=== PATIENT | male | born 1945 | race Caucasian/White ===

== ENCOUNTER 2016-03-10 06:40 | Emergency (ER) | payer OTHER, MEDICAID ==
[~2016-03-10] VITALS: Ht 167.6 cm; Wt 84.8 kg
[2016-03-10 06:40] VITALS: BP 143/77; PULSE 88; RESP 18; TEMP 98.4; O2SAT 100
[2016-03-10] MEDS ORDERED: OMEP40CA33 (07:26)
[2016-03-10] MEDS ORDERED: INSU10VI5 (07:26)
[2016-03-10] MEDS ORDERED: ATOR20TA64 (07:26)
[2016-03-10] MEDS ORDERED: NAPR-238 (07:26)
[2016-03-10] MEDS ORDERED: LOSA50TA20 (07:26)
[2016-03-10] MEDS ORDERED: ASPI-524 (07:26)
[2016-03-10] MEDS ORDERED: HYDR-2470 (07:26)
[2016-03-10] MEDS ORDERED: FURO-149 (07:26)
[2016-03-10] MEDS ORDERED: CARV25TA55 (07:26)
[2016-03-10] MEDS ORDERED: ACETAMINOPHEN 500 MG TABLET PO ONE (08:15)
[2016-03-10] MEDS ORDERED: predniSONE 1 MG TABLET PO ONE (10:00)
[2016-03-10 10:09] VITALS: O2SAT 97
[2016-03-10 10:22] VITALS: BP 124/77; PULSE 77; RESP 16
== END 2016-03-10 10:22 | disposition home or self-care (01) ==
LOC: SED 06:40
DX: M10.9 Gout, unspecified (principal); E11.9 Type 2 diabetes mellitus without complications; I10 Essential (primary) hypertension; Z79.4 Long term (current) use of insulin
CPT/HCPCS: 36415; 73564; 84550; 85651; 99285; J7512

== ENCOUNTER 2016-04-18 09:50 | Inpatient (IN) | payer OTHER, MEDICAID ==
[~2016-04-18] VITALS: Ht 167.6 cm; Wt 83.9 kg
[~2016-04-18 09:50] MED LIST: ASPI-524; ATOR20TA64; CARV25TA55; FURO-149; HYDR-2470; INSU10VI5; LOSA50TA20; NAPR-238; OMEP40CA33
[2016-04-18 09:55] VITALS: BP 86/54; PULSE 82; RESP 16; TEMP 97; O2SAT 98
--- NOTE | 2016-04-18 10:05 | NUR ---
Placed in room 1. Placed on radiation monitor, blood pressure machine and pulse oximeter. To gown for exam. Side rails up. Report given to Wilver BONE.
--- NOTE | 2016-04-18 10:06 | NUR ---
ER Dr. Schaefer at bedside examining patient.
--- NOTE | 2016-04-18 10:10 | NUR ---
BIB from home c/o back pain, headache, dizziness, blurred vision last night with low BP last night. Denies chest pain, denies shortness of breath. Denies headache, dizziness, or blurred vision today. Denies pain at this time.
[2016-04-18] MEDS ORDERED: NACL 0.9% 1,000 ML IV ONE (10:15)
[2016-04-18 10:40] LABS: BASOPHILS % (AUTO) 0.1 % (0.0-2.0); EOSINOPHILS # (AUTO) 0.2 K/uL (0.0-0.4); EOSINOPHILS % (AUTO) 1.1 % (0.0-4.0); HEMATOCRIT 36.3 % (36-54); HEMOGLOBIN 11.9 g/dL (14.0-18.0); LYMPHOCYTES # (AUTO) 1.1 K/uL (1.0-5.5); LYMPHOCYTES % (AUTO) 5.7 % (20.5-51.5); MEAN CORPUSCULAR HEMOGLOBIN 30 pg (27-31); MEAN CORPUSCULAR HGB CONC 33 % (32-36); MEAN CORPUSCULAR VOLUME 90 fL (79.0-98.0); MONOCYTES # (AUTO) 1.4 K/uL (0.0-1.0); MONOCYTES % (AUTO) 7.2 % (1.7-9.3); NEUTROPHILS # (AUTO) 16.4 K/uL (1.8-7.7); NEUTROPHILS % (AUTO) 85.9 % (40.0-70.0); PLATELET COUNT (AUTO) 188 K/uL (130-430); RED BLOOD CELL COUNT(AUTO) 4.01 MIL/uL (4.2-6.2); RED CELL DISTRIBUTION WIDTH 15.8 % (9.0-15.0); WHITE BLOOD COUNT (AUTO) 19.1 K/uL (4.8-10.8)
[2016-04-18 10:43] LABS: CALCIUM 8.6 mg/dL (8.4-11.0); CREATININE 4.06 mg/dL (0.55-1.30); POTASSIUM 3.9 mmol/L (3.5-5.1)
[2016-04-18 10:47] LABS: INR 1.1 (0.80-1.20); PROTHROMBIN TIME 11.5 SECS (9.5-12.5)
[2016-04-18 10:48] LABS: ALBUMIN 2.6 g/dL (3.4-4.8); TOTAL BILIRUBIN 0.7 mg/dL (0.0-1.0); TOTAL PROTEIN, SERUM 6.4 g/dL (6.4-8.3)
[2016-04-18] MEDS ORDERED: PROCHLORPERAZINE EDISYLATE 10 MG/2 ML VIAL IVP ONE (11:15)
[2016-04-18] MEDS ORDERED: cefTRIAXone 1 GM IVPB PREMIX 50 ML IV ONE (11:15)
[2016-04-18] MEDS ORDERED: KETOROLAC TROMETHAMINE 30 MG VIAL IVP ONE (12:15)
--- NOTE | 2016-04-18 12:20 | NUR ---
Patient resting quietly. No acute distress noted. Vital signs within normal range. Denies pain.
--- NOTE | 2016-04-18 12:25 | NUR ---
Dr. Schaefer at bedside speaking with pt regarding ED results.
[2016-04-18 12:29] LABS: BILIRUBIN,URINE NEGATIVE (NEGATIVE); BLOOD, URINE NEGATIVE (NEGATIVE); CLARITY/URINE CLEAR (CLEAR); COLOR,URINE YELLOW (YELLOW); GLUCOSE,URINE NEGATIVE (NEGATIVE); KETONES,URINE NEGATIVE (NEGATIVE); LEUKOCYTE ESTERASE ,URINE NEGATIVE (NEGATIVE); NITRITE, URINE NEGATIVE (NEGATIVE); PH,URINE 5.5 (5.0-8.0); PROTEIN URINE NEGATIVE (NEGATIVE); UROBILINOGEN,URINE 0.2 (0.2-1.0)
[2016-04-18] MEDS ORDERED: ALLO100T PO (12:29)
[2016-04-18] MEDS ORDERED: LEVO50TA77 PO (12:29)
[2016-04-18] MEDS ORDERED: PRED20TA PO (12:29)
[2016-04-18] MEDS ORDERED: IBUP-1969 PO (12:29)
--- NOTE | 2016-04-18 12:46 | NUR ---
Care endorsed to SMITHA Westbrook
--- NOTE | 2016-04-18 14:13 | NUR ---
Patient will be admitted to care of [facility]. Admitted to tele unit. Will go to room . Belongings list completed. Summary report printed. Report given to .
--- NOTE | 2016-04-18 14:30 | NUR ---
ADMISSION NOTE Received patient from ER via jeremy, received report from SHENG BONE. Patient admitted with diagnosis of ACUTE RENAL FAILURE. Patient oriented to hospital routine, call light, toileting and safety-patient verbalized understanding.
[2016-04-18 14:33] VITALS: BP 131/85; PULSE 74; RESP 16; TEMP 97.5; O2SAT 97
[2016-04-18] MEDS: NACL 0.9% 1,000 ML IV SCH (14:52)
[2016-04-18 15:11] LABS: C-REACTIVE PROTEIN QUANT 4.8 mg/dL (0-0.5); URIC ACID 10.3 mg/dL (2.4-7.0)
[2016-04-18] MEDS ORDERED: ACETAMINOPHEN 325 MG TABLET PO PRN (16:00)
--- NOTE | 2016-04-18 16:00 | NUR ---
RN ROUNDS Patient is resting in bed, no complaints of pain or discomfort, no signs of distress, instructed patient to use call lewis if assistance is needed, patient verbalized understanding, bed left in lowest position, bed alarm on, call lewis in patient's hand, side rails up, fall precautions in place.
[2016-04-18] MEDS ORDERED: HYDROcodone/ACETAMIN 5-325 MG TAB (NORCO/ VICODIN) PO PRN (16:15)
[2016-04-18] MEDS ORDERED: METOCLOPRAMIDE HCL 10 MG TABLET PO PRN (16:15)
[2016-04-18] MEDS ORDERED: PANTOPRAZOLE SODIUM 40 MG TAB PO ONE (16:15)
--- NOTE | 2016-04-18 16:43 | NUR ---
CALLED NEPHROLOGY CONSULT TO DR CHRISTIANSON, DR DOE PROBE OPERATOR, RE: ACUTE RENAL FAILURE. SPOKE TO KENNA
--- NOTE | 2016-04-18 17:10 | NUR ---
RN ROUND Patient is resting in bed, no complaints of pain or discomfort, bed in lowest position, bed alarm on, two side rails up, call lewis within patient's reach, instructed patient to call if assistance is needed, patient verbalized understanding, will continue to monitor
[2016-04-18] MEDS: INSULIN ASPART 100 UNITS/ML, 10 ML VIAL (NovoLOG) SUBCUT PRN ×2 (17:41→21:37)
--- NOTE | 2016-04-18 18:35 | NUR ---
Closing note Patient is resting in bed, no complaints of pain or discomfort, no signs of distress, all needs met, will endorse to shiftman nurse that patient needs US of renal to be done, bed in lowest position, bed alarm on, side rails up, call lewis in patient's hand, fall precautions in place.
--- NOTE | 2016-04-18 19:50 | NUR ---
ROUNDS PATIENT IN BED, WATCHING TV, NOT IN DISTRESS, VITALS STABLE. DENIES ANY PAIN AND DISCOMFORT AT THIS TIME. ASSESSMENT DONE AND DOCUMENTED. SEE FLOWSHEET. NEEDS ATTENDED TO. REPOSITIONED AND MADE COMFORTABLE. SAFETY AND FALL PRECAUTION MEASURES IN PLACED. BED IN LOW AND LOCKED POSITION. CALL LIGHT PLACED WITH PATIENT.
[2016-04-18] MEDS ORDERED: ZOLPIDEM TARTRATE 5 MG TABLET PO PRN (21:00)
--- NOTE | 2016-04-18 21:00 | NUR ---
MEDICATION DUE MEDICATIONS GIVEN SCHEDULED, TOLERATED WELL. WILL CONTINUE TO MONITOR.
[2016-04-18 22:47] VITALS: BP 146/78; PULSE 80; RESP 20; TEMP 97; O2SAT 98
[2016-04-19] VITALS (7 sets, daily range): BP systolic 146–175; BP diastolic 78–87; PULSE 81–84; RESP 16–21; TEMP 97–98.8; O2SAT 96–100; Ht 167.6 cm; Wt 83.9 kg
--- NOTE | 2016-04-19 | NUR ---
PATIENT RESTING: Patient resting quietly. No acute distress noted. Vital signs within normal range.
--- NOTE | 2016-04-19 02:00 | NUR ---
ROUNDS PATIENT ASLEEP, NO SOB NOTED, WILL CONTINUE TO MONITOR.
--- NOTE | 2016-04-19 04:00 | NUR ---
PATIENT RESTING: Patient resting quietly. No acute distress noted. Vital signs within normal range.
[2016-04-19] MEDS: NACL 0.9% 1,000 ML IV SCH (04:32)
--- NOTE | 2016-04-19 06:50 | NUR ---
CLOSING NOTES PATIENT STABLE, ACCU CHECK DONE WITH BLOOD SUGAR OF 150 MG/DL, NO INSULIN COVERAGE PER SLIDING SCALE. ALL NEEDS ATTENDED TO. CALL LIGHT PLACED WITH PATIENT.
[2016-04-19] MEDS ORDERED: LEVOTHYROXINE SODIUM 0.05 MG TABLET PO SCH (07:00)
[2016-04-19 07:01] LABS: BASOPHILS % (AUTO) 0.1 % (0.0-2.0); EOSINOPHILS # (AUTO) 0.2 K/uL (0.0-0.4); EOSINOPHILS % (AUTO) 1.6 % (0.0-4.0); HEMATOCRIT 32.5 % (36-54); HEMOGLOBIN 10.9 g/dL (14.0-18.0); LYMPHOCYTES # (AUTO) 1.4 K/uL (1.0-5.5); LYMPHOCYTES % (AUTO) 11.2 % (20.5-51.5); MEAN CORPUSCULAR HEMOGLOBIN 30 pg (27-31); MEAN CORPUSCULAR HGB CONC 33 % (32-36); MEAN CORPUSCULAR VOLUME 90 fL (79.0-98.0); MONOCYTES # (AUTO) 1.5 K/uL (0.0-1.0); MONOCYTES % (AUTO) 11.9 % (1.7-9.3); NEUTROPHILS # (AUTO) 9.5 K/uL (1.8-7.7); NEUTROPHILS % (AUTO) 75.2 % (40.0-70.0); PLATELET COUNT (AUTO) 163 K/uL (130-430); RED CELL DISTRIBUTION WIDTH 15.9 % (9.0-15.0); WHITE BLOOD COUNT (AUTO) 12.6 K/uL (4.8-10.8)
[2016-04-19 07:29] LABS: ALBUMIN 2.4 g/dL (3.4-4.8); CALCIUM 8.6 mg/dL (8.4-11.0); CREATININE 3.33 mg/dL (0.55-1.30); PHOSPHORUS 3.1 mg/dL (2.7-4.5); POTASSIUM 3.7 mmol/L (3.5-5.1); TOTAL BILIRUBIN 0.5 mg/dL (0.0-1.0); TOTAL PROTEIN, SERUM 6.2 g/dL (6.4-8.3)
--- NOTE | 2016-04-19 08:00 | NUR ---
am rounds awake,alert and oriented, bangladeshi speaking but understands uzbek. on room air, no complaints of shortness of breath or any pain. IVF on rt. arm with IVF of NS @ 100 cc/hr.
--- NOTE | 2016-04-19 08:00 | NUR ---
pt. up and assisted to the restroom, no dizziness, and back and sat on chair for breakfast.
--- NOTE | 2016-04-19 08:33 | NUR ---
Nutrition Update Lan Scale 18 noted. Pt admitted for acute renal failure, leukocytosis, uncontrolled DM. Diet: renal standard BMI: 21.4 kg/m2 RD to follow per nutrition care standards.
[2016-04-19] MEDS ORDERED: PANTOPRAZOLE SODIUM 40 MG TAB PO SCH (09:00)
--- NOTE | 2016-04-19 09:25 | NUR ---
due po med given without difficulty. at bedside. no complaints of pain.
[2016-04-19] MEDS: INSULIN ASPART 100 UNITS/ML, 10 ML VIAL (NovoLOG) SUBCUT PRN ×2 (11:57→17:14)
--- NOTE | 2016-04-19 12:00 | NUR ---
blood sugar checked with sliding scale coverage given (see e-mar), pt. up in chair for lunch. needs attended.
--- NOTE | 2016-04-19 14:50 | NUR ---
pt. checked since saying he has high blood sugar on their own personal glucose machine, explained to that I will recheck BS before dinner since he was given insulin prior to lunch as translated in German by HENRIK Rogers. pt. verbalized that he does not feel good. checked BP 180/89 HR 82, nurse Esperanza aware, will call MD, no BP med ordered. pt. and informed.pt. denies any pain.
--- NOTE | 2016-04-19 15:10 | NUR ---
PAGED: CALLED DR MYERS'S EXCHANGE FOR BD=176/89 AND LEFT MESSAGE C/O EVITA.
[2016-04-19] MEDS ORDERED: cloNIDine HCL 0.1 MG TABLET PO PRN (16:15)
--- NOTE | 2016-04-19 16:15 | NUR ---
Iza charge nurse asked to remove monitor and storage bin tender, discontinue per MD order.
--- NOTE | 2016-04-19 17:00 | NUR ---
pt. seen by MD and was told to discharge today. blood sugar checked with sliding scale coverage given. at bedside. BP med given as ordered.
--- NOTE | 2016-04-19 18:10 | NUR ---
pt. ready to go home,all dressed up. rechecked VS, BP 146/79 HR 83 RR 20 Temp 98.8 , 100 % on room air.
--- NOTE | 2016-04-19 19:00 | NUR ---
rn notes: transition care documents given to patient and listening to instructions with tajik interpretations.patient and verbalized understanding. iv removed dry gauze applied,no bleeding noted.accompanied home by patient in stable condition.
--- NOTE | 2016-04-19 19:05 | NUR ---
discharge instructions given by SMITHA Mata and verbalized understanding. home via wheelchair in stable condition accompanied by .
--- NOTE | 2016-04-22 10:32 | NUR ---
Discharge Follow Up Phone Call RUFFLING MACHINE OPERATOR phoned patient, . Patient stated he was doing okay. He prefers to speak Czech but was able to communicate in Slovenian. Patient stated he understood his discharge instructions and what medications he was not suppose to take. He has followed up with his PCP as directed. He is monitoring his blood sugar and blood pressure as directed and both have been stable. He has no questions or concerns. No further follow up calls needed.
== END 2016-04-19 19:00 | disposition home or self-care (01) | DRG 314 ==
LOC: SED 09:50 → SMU 14:07 → STU 14:15 → SMU 14:38
PROVIDERS: ADMIT Internal Medicine; ATTEND Internal Medicine
DX: I95.9 Hypotension, unspecified (principal); E43 Unspecified severe protein-calorie malnutrition; N17.9 Acute kidney failure, unspecified; I12.0 Hypertensive chronic kidney disease with stage 5 chronic kidney disease or end stage renal disease; N18.5 Chronic kidney disease, stage 5; E11.65 Type 2 diabetes mellitus with hyperglycemia; D72.829 Elevated white blood cell count, unspecified; E79.0 Hyperuricemia without signs of inflammatory arthritis and tophaceous disease; E03.9 Hypothyroidism, unspecified; E11.22 Type 2 diabetes mellitus with diabetic chronic kidney disease; E11.319 Type 2 diabetes mellitus with unspecified diabetic retinopathy without macular edema; H54.41 Blindness, right eye, normal vision left eye; Z79.899 Other long term (current) drug therapy; Z68.29 Body mass index [BMI] 29.0-29.9, adult
CPT/HCPCS: 36415; 70450-TC; 71010; 76770; 80053; 81003; 82962; 83605; 83880; 84100-TC; 84443-TC; 84484; 84550-TC; 85025; 85610-TC; 85651-TC; 86140; 86710; 87040-TC; 93005; 96361; 96365; 97116-GP; 99285; J0696; J0780; J1815; J1885; J7030

== ENCOUNTER 2016-12-21 16:06 | Emergency (ER) | payer OTHER, MEDICAID ==
[~2016-12-21] VITALS: Ht 167.6 cm; Wt 83.9 kg
[~2016-12-21 16:06] MED LIST changes: +ALLO100T PO; -ASPI-524; -FURO-149; -HYDR-2470; -INSU10VI5; -LOSA50TA20; -NAPR-238; -OMEP40CA33
[2016-12-21 16:14] VITALS: BP_SYST 155
[2016-12-21] MEDS ORDERED: NACL 0.9% 1,000 ML IV ONE (16:45)
[2016-12-21] MEDS ORDERED: FURO-149 PO (16:52)
[2016-12-21] MEDS ORDERED: ACET-1010 PO (16:52)
[2016-12-21] MEDS ORDERED: LEVO50TA77 PO (16:52)
[2016-12-21] MEDS ORDERED: FEBU80TA PO (16:52)
[2016-12-21] MEDS ORDERED: DORZ10DR8 OP (16:52)
[2016-12-21] MEDS ORDERED: LIP20 PO (16:52)
[2016-12-21] MEDS ORDERED: VIT1TABL67 PO (16:52)
[2016-12-21] MEDS ORDERED: BRI.2% OP (16:52)
[2016-12-21] MEDS ORDERED: GABA800T PO (16:52)
[2016-12-21] MEDS ORDERED: LOSA50TA3 PO (16:52)
[2016-12-21] MEDS ORDERED: FERR-57 PO (16:52)
[2016-12-21] MEDS ORDERED: ASA81 PO (16:52)
[2016-12-21] MEDS ORDERED: INSU10VI4 SUBCUT ×2 (16:52)
[2016-12-21 16:54] LABS: BASOPHILS # (AUTO) 0.1 K/uL (0.0-0.2); BASOPHILS % (AUTO) 0.6 % (0.0-2.0); EOSINOPHILS # (AUTO) 0.1 K/uL (0.0-0.4); EOSINOPHILS % (AUTO) 1.2 % (0.0-4.0); HEMATOCRIT 45.7 % (36-54); HEMOGLOBIN 14.6 g/dL (14.0-18.0); LYMPHOCYTES # (AUTO) 1.3 K/uL (1.0-5.5); LYMPHOCYTES % (AUTO) 16.1 % (20.5-51.5); MEAN CORPUSCULAR HEMOGLOBIN 30 pg (27-31); MEAN CORPUSCULAR HGB CONC 32 % (32-36); MEAN CORPUSCULAR VOLUME 95 fL (79.0-98.0); MONOCYTES # (AUTO) 0.9 K/uL (0.0-1.0); MONOCYTES % (AUTO) 10.4 % (1.7-9.3); NEUTROPHILS # (AUTO) 5.9 K/uL (1.8-7.7); NEUTROPHILS % (AUTO) 71.7 % (40.0-70.0); PLATELET COUNT (AUTO) 199 K/uL (130-430); RED BLOOD CELL COUNT(AUTO) 4.81 MIL/uL (4.2-6.2); WHITE BLOOD COUNT (AUTO) 8.3 K/uL (4.8-10.8)
[2016-12-21 17:02] LABS: ANION GAP 7 (5-15); CALCIUM 8.6 mg/dL (8.4-11.0); CHLORIDE 99 mmol/L (98-107); CREATININE 3.38 mg/dL (0.55-1.30); GLUCOSE 169 mg/dL (70-99); POTASSIUM 4.1 mmol/L (3.5-5.1); SODIUM SERUM 135 mmol/L (136-145); UREA NITROGEN, BLOOD 61 mg/dL (8-21)
[2016-12-21 17:07] LABS: ALANINE AMINOTRANSFERASE 25 U/L (12-78); ALBUMIN 3.2 g/dL (3.4-4.8); ASPARTATE AMINOTRANSFERASE 17 U/L (10-37); TOTAL BILIRUBIN 0.4 mg/dL (0.0-1.0)
[2016-12-21 17:11] LABS: ALCOHOL, BLOOD < 3 mg/dL (<10)
[2016-12-21 17:42] LABS: INR 1.1 (0.80-1.20); PROTHROMBIN TIME 10.9 SECS (9.5-12.5)
[2016-12-21 17:56] LABS: BILIRUBIN,URINE NEGATIVE (NEGATIVE); BLOOD, URINE NEGATIVE (NEGATIVE); CLARITY/URINE CLEAR (CLEAR); COLOR,URINE YELLOW (YELLOW); GLUCOSE,URINE NEGATIVE (NEGATIVE); KETONES,URINE NEGATIVE (NEGATIVE); LEUKOCYTE ESTERASE ,URINE NEGATIVE (NEGATIVE); NITRITE, URINE NEGATIVE (NEGATIVE); PROTEIN URINE 2+ (NEGATIVE); UROBILINOGEN,URINE 0.2 (0.2-1.0)
[2016-12-21 18:00] LABS: BACTERIA,URINE FEW /HPF (None Seen); RBC,URINE 0-3 /HPF (0-3); WBC,URINE 0-3 /HPF (0-3)
[2016-12-21 18:01] LABS: MUCUS,URINE None Seen /LPF (None Seen)
[2016-12-21 18:21] LABS: BARBITURATE, URINE NEGATIVE (NEG <=200); BENZODIAZEPINE, URINE NEGATIVE (NEG <=150); CANNABINOID, URINE NEGATIVE (NEG <=50); COCAINE, URINE NEGATIVE (NEG <=150); METHAMPHETAMINES SCREEN,URINE NEGATIVE (NEG <=500); OPIATE, URINE NEGATIVE (NEG <=100); PHENCYCLIDINE SCREEN,URINE NEGATIVE (NEG <=25); UR TRICYCLIC ANTIDEPRESSANTS NEGATIVE (NEG <=300); URINE AMPHETAMINE NEGATIVE (NEG <=500); URINE METHADONE NEGATIVE (NEG <=200); URINE OXYCODONE SCREEN NEGATIVE (NEG <=100); URINE PROPOXYPHENE SCREEN NEGATIVE (NEG <=300)
[2016-12-21 18:28] VITALS: BP_SYST 144
== END 2016-12-21 18:28 | disposition home or self-care (01) ==
LOC: SED 16:06
DX: R53.1 Weakness (principal); R53.81 Other malaise; I12.9 Hypertensive chronic kidney disease with stage 1 through stage 4 chronic kidney disease, or unspecified chronic kidney disease; N18.9 Chronic kidney disease, unspecified; Z79.4 Long term (current) use of insulin; Z88.5 Allergy status to narcotic agent; Z79.899 Other long term (current) drug therapy
CPT/HCPCS: 36415; 70450; 71010; 80053; 80307; 81000; 82550; 84484; 85025; 85610; 85730; 86710; 93005; 96360; 99285; G0482; J7030